=== PATIENT | female | born 1970 | race Caucasian/White ===

== ENCOUNTER 2021-01-10 13:02 | Inpatient (IN) | payer MEDICAID ==
[2021-01-10] VITALS (8 sets, daily range): BP systolic 95–122; BP diastolic 60–72
[~2021-01-10] VITALS: Ht 172.7 cm; Wt 62.0 kg
[2021-01-10] MEDS ORDERED: SODIUM CHLORIDE 0.9% 500 ML IV ONE (13:15)
[2021-01-10 13:36] LABS: Basophils # (auto) 0.1 10 ^3/uL (0-0.2); Eosinophils # (auto) 0.2 10 ^3/uL (0-0.8); Hematocrit 18.4 % (36.0-46.0)
[2021-01-10 13:37] LABS: Basophils % (auto) 1.5 % (0.0-2.0); Eosinophils % (auto) 2.2 % (0.0-7.0); Lymphocytes # (auto) 1.9 10 ^3/uL (0.4-5.4); Lymphocytes % (auto) 28.2 % (10.0-50.0); Mean Corpuscular Hemoglobin 17.6 pg (28.0-32.0); Mean Corpuscular Hgb Conc. 29.3 g/dL (32.0-36.0); Mean Corpuscular Volume 60.1 fL (80.0-100.0); Monocytes # (auto) 0.5 10 ^3/uL (0-1.3); Monocytes % (auto) 7.9 % (0.0-12.0); Neutrophils # (auto) 4.1 10 ^3/uL (1.6-8.6); Neutrophils % (auto) 60.2 % (37.0-80.0); Red Blood Cells 3.06 10^6/uL (4.0-5.20); White Blood Cell 6.8 10^3/uL (4.4-10.8)
[2021-01-10 13:39] LABS: Red Cell Distribution Width 20.2 % (11.8-14.3)
[2021-01-10 13:44] LABS: Hemoglobin 5.4 g/dL (12.2-16.2)
[2021-01-10 13:55] LABS: Albumin 3.1 g/dL (3.4-5.0); Anion Gap 7 (5-15); Blood Urea Nitrogen 10 mg/dL (7-18); Calcium 7.8 mg/dL (8.5-10.1); Carbon Dioxide 24 mmol/L (21-32); Chloride 112 mmol/L (98-107); Glucose 64 mg/dL (74-106); Magnesium 2.4 mg/dL (1.6-2.6); Sodium 143 mmol/L (136-145)
[2021-01-10 14:02] LABS: Alanine Aminotransferase 15 U/L (13-56); Alkaline Phosphatase 86 U/L (45-117); Aspartate Aminotransferase 11 U/L (15-37); Bilirubin, Total 0.2 mg/dL (0.2-1.0); GFR African American 71 mL/min; GFR Non-African American 59 mL/min; Potassium 2.7 mmol/L (3.5-5.1); Total Protein 7.2 g/dL (6.4-8.2)
[2021-01-10 14:03] LABS: BUN/Creatinine Ratio 9.4
[2021-01-10] MEDS ORDERED: POTASSIUM CHL 20MEQ/100ML 100 ML IV ONE (15:15)
[2021-01-10] MEDS ORDERED: MORPHINE SULF INJ 2 MG/ML SYRINGE 1ML IV ONE (15:15)
[2021-01-10] MEDS ORDERED: ONDANSETRON HCL 4 MG/2 ML VIAL IV ONE (15:15)
[2021-01-10] MEDS ORDERED: POTASSIUM CHL 20 Meq TABLET PO ONE (15:15)
[2021-01-10] MEDS ORDERED: LORATADINE 10 MG TAB PO ONE (17:00)
[2021-01-10] MEDS ORDERED: ACETAMINOPHEN 500 MG TAB PO ONE (17:00)
[2021-01-10] MEDS ORDERED: NITROGLYCERIN 0.4 MG SL TAB SL PRN (17:00)
[2021-01-10 19:21] LABS: Ferritin 2.2 ng/mL (10-322); Folate (Folic Acid) 7.71 ng/mL (5.38-24)
[2021-01-10] MEDS ORDERED: HYDR-4798 PO (19:28)
[2021-01-10] MEDS ORDERED: BACL10TA PO (19:28)
[2021-01-10 20:44] LABS: % Iron Saturation 7.1 % (15-50)
[2021-01-10] MEDS ORDERED: ACETAMINOPHEN 325 MG TAB PO PRN (20:45)
[2021-01-10] MEDS: MORPHINE SULF INJ 2 MG/ML SYRINGE 1ML IV PRN ×2 (20:46)
[2021-01-10] MEDS: PANTOPRAZOLE 40 MG TAB PO SCH (20:46)
[2021-01-11] VITALS (8 sets, daily range): BP systolic 99–121; BP diastolic 63–77
[2021-01-11 05:17] LABS: Eosinophils # (auto) 0.1 10 ^3/uL (0-0.8)
[2021-01-11 05:21] LABS: Basophils # (auto) 0.1 10 ^3/uL (0-0.2); Eosinophils % (auto) 1.6 % (0.0-7.0); Hematocrit 23.9 % (36.0-46.0); Hemoglobin 7.5 g/dL (12.2-16.2); Lymphocytes # (auto) 1.9 10 ^3/uL (0.4-5.4); Lymphocytes % (auto) 34.9 % (10.0-50.0); Mean Corpuscular Hgb Conc. 31.6 g/dL (32.0-36.0); Mean Corpuscular Volume 66.7 fL (80.0-100.0); Monocytes # (auto) 0.3 10 ^3/uL (0-1.3); Monocytes % (auto) 5.2 % (0.0-12.0); Neutrophils % (auto) 57.3 % (37.0-80.0); Red Blood Cells 3.58 10^6/uL (4.0-5.20); White Blood Cell 5.3 10^3/uL (4.4-10.8)
[2021-01-11 05:36] LABS: INR 1.1 (0.9-1.15); Partial Thromboplastin Time 25.2 sec (23.0-31.2)
[2021-01-11 05:44] LABS: Potassium 4.2 mmol/L (3.5-5.1)
[2021-01-11 05:50] LABS: Albumin 2.7 g/dL (3.4-5.0); BUN/Creatinine Ratio 14.1; Calcium 7.7 mg/dL (8.5-10.1); Total Protein 6.5 g/dL (6.4-8.2)
[2021-01-11 06:11] LABS: Red Cell Distribution Width 26.9 % (11.8-14.3)
[2021-01-11] MEDS: PANTOPRAZOLE 40 MG TAB PO SCH ×2 (10:24→22:01)
[2021-01-11] MEDS: MORPHINE SULF INJ 2 MG/ML SYRINGE 1ML IV PRN ×2 (10:32→20:20)
[2021-01-11] MEDS: SODIUM FERR GLUC 62.5MG/5ML 125 MG in SODIUM CHL 0.9% 100 ML IV SCH (12:41)
[2021-01-11 13:09] LABS: Urine Bacteria MOD /hpf (None Seen); Urine Blood Negative /uL (Negative); Urine Specific Gravity 1.005 (1.001-1.035); Urine WBC 68 /hpf (0 - 5)
[2021-01-11 13:21] LABS: Alcohol, Urine < 3.0 mg/dL (0-10); Amphetamine Screen, Urine POSITIVE (NEGATIVE); Barbiturate Scree,Urine NEGATIVE (NEGATIVE); Benzodiazephine Screen, Urine NEGATIVE (NEGATIVE); Cannabinoid Screen, Urine NEGATIVE (NEGATIVE); Cocaine Screen, Urine NEGATIVE (NEGATIVE); Phencyclidine Screen, Urine NEGATIVE (NEGATIVE)
[2021-01-11 13:29] LABS: Opiate Scree,Urine NEGATIVE (NEGATIVE)
[2021-01-11] MEDS ORDERED: cefTRIAXone 1GM/50ML D5W 50 ML IV ONE (14:15)
[2021-01-12 05:00] VITALS: BP 105/73
[2021-01-12 05:55] LABS: Hemoglobin 7.6 g/dL (12.2-16.2)
[2021-01-12 05:56] LABS: Hematocrit 24.7 % (36.0-46.0)
[2021-01-12 08:27] VITALS: BP 96/54
[2021-01-12] MEDS ORDERED: cefTRIAXone 1GM/50ML D5W 50 ML IV SCH (09:00)
[2021-01-12] MEDS: MORPHINE SULF INJ 2 MG/ML SYRINGE 1ML IV PRN (09:50)
[2021-01-12] MEDS: PANTOPRAZOLE 40 MG TAB PO SCH (09:50)
[2021-01-12] MEDS: SODIUM FERR GLUC 62.5MG/5ML 125 MG in SODIUM CHL 0.9% 100 ML IV SCH (11:55)
[2021-01-12 12:25] VITALS: BP 119/66
[2021-01-12] MEDS ORDERED: FERR-7 PO (13:34)
== END 2021-01-12 15:23 | disposition home or self-care (01) | DRG 663 ==
LOC: ER 13:02 → EDBD 13:02 → OVERFLOW 16:59 → WEST WING 18:42
PROVIDERS: ADMIT Hospitalist; ATTEND Hospitalist
PROC: 30233N1 Transfusion of Nonautologous Red Blood Cells into Peripheral Vein, Percutaneous Approach (ICD-10-PCS; principal; 2021-01-10)
DX: D50.9 Iron deficiency anemia, unspecified (principal); S09.90XA Unspecified injury of head, initial encounter; R55 Syncope and collapse; E87.6 Hypokalemia; F17.210 Nicotine dependence, cigarettes, uncomplicated; T14.8XXA Other injury of unspecified body region, initial encounter; W18.39XA Other fall on same level, initial encounter; Z20.822 Contact with and (suspected) exposure to COVID-19; Z90.49 Acquired absence of other specified parts of digestive tract; Z83.3 Family history of diabetes mellitus; Z98.51 Tubal ligation status; Y93.89 Activity, other specified; Y92.89 Other specified places as the place of occurrence of the external cause; Y99.8 Other external cause status; Z98.84 Bariatric surgery status
CPT/HCPCS: 36415; 36430; 70450; 70486; 72125; 76830; 76856; 80053; 80307; 81001; 81025; 82607; 82728; 82746; 83540; 83550; 83615; 83735; 84439; 84443; 84484; 85014; 85018; 85025; 85045; 85610; 85730; 86850; 86900; 86901; 86920; 87426; 93005; 96361; 96374; 96375; 99291; G0378; J0696; J2405; J3480

== ENCOUNTER 2023-02-15 23:21 | Emergency (ER) | payer MEDICAID ==
[~2023-02-15] VITALS: Ht 170.2 cm; Wt 67.5 kg
[~2023-02-15 23:21] MED LIST: BACL10TA PO; FERR-7 PO; HYDR-4798 PO; HYDR-4833 PO; PANT40T PO; SUCR1SUS26 PO
[2023-02-16 01:09] LABS: Basophils # (auto) 0.1 10 ^3/uL (0-0.2); Basophils % (auto) 0.8 % (0.0-2.0); Eosinophils # (auto) 0.2 10 ^3/uL (0-0.8); Eosinophils % (auto) 1.9 % (0.0-7.0); Hematocrit 26.5 % (36.0-46.0); Hemoglobin 8.8 g/dL (12.2-16.2); Lymphocytes # (auto) 3.5 10 ^3/uL (0.4-5.4); Lymphocytes % (auto) 39.6 % (10.0-50.0); Mean Corpuscular Hemoglobin 29.3 pg (28.0-32.0); Mean Corpuscular Hgb Conc. 33.3 g/dL (32.0-36.0); Mean Corpuscular Volume 88.1 fL (80.0-100.0); Monocytes # (auto) 0.6 10 ^3/uL (0-1.3); Monocytes % (auto) 6.9 % (0.0-12.0); Neutrophils # (auto) 4.5 10 ^3/uL (1.6-8.6); Neutrophils % (auto) 50.8 % (37.0-80.0); Red Blood Cells 3.01 10^6/uL (4.0-5.20); Red Cell Distribution Width 15.4 % (11.8-14.3); White Blood Cell 8.8 10^3/uL (4.4-10.8)
[2023-02-16 01:18] LABS: Albumin 3.9 g/dL (3.2-4.8); Alkaline Phosphatase 65 U/L (46-116); Anion Gap 3.9 (5-15); Aspartate Aminotransferase < 8 U/L (13-40); BUN/Creatinine Ratio 20.6 (10.0-20.0); Blood Urea Nitrogen 21 mg/dL (9-23); Calcium 8.8 mg/dL (8.7-10.4); Carbon Dioxide 24.1 mmol/L (20-30); Chloride 111 mmol/L (98-107); Glucose 100 mg/dL (74-106); Lipase 51 U/L (12-53); Potassium 3.6 mmol/L (3.5-5.1); Sodium 139 mmol/L (136-145)
[2023-02-16 01:19] LABS: Bilirubin, Total < 0.2 mg/dL (0.2-1.0); Total Protein 6.6 g/dL (5.7-8.2)
[2023-02-16 01:29] LABS: Alanine Aminotransferase < 9 U/L (7-40)
[2023-02-16] MEDS ORDERED: ONDANSETRON ODT 4 MG TAB PO ONE (05:00)
[2023-02-16] MEDS ORDERED: HYDROcodone-ACET 10/325MG TAB PO ONE (05:00)
[2023-02-16 05:40] VITALS: BP 102/68; PULSE 72; RESP 18; TEMP 98.3; O2SAT 98
== END 2023-02-16 06:40 | disposition home or self-care (01) ==
LOC: ER 23:21
DX: R42 Dizziness and giddiness (principal); E86.0 Dehydration; R79.89 Other specified abnormal findings of blood chemistry; R10.9 Unspecified abdominal pain; R11.2 Nausea with vomiting, unspecified; R07.89 Other chest pain; F17.210 Nicotine dependence, cigarettes, uncomplicated; Z90.49 Acquired absence of other specified parts of digestive tract; Z79.899 Other long term (current) drug therapy
CPT/HCPCS: 36415; 71045; 80053; 82962; 83690; 84484; 85025; 93005; 99285; Q0162

== ENCOUNTER 2023-10-13 19:48 | Emergency (ER) | payer MEDICAID ==
[~2023-10-13] VITALS: Ht 170.2 cm; Wt 68.2 kg
[2023-10-13] MEDS: MORPHINE SULFATE 4 MG/ML SYR/VIAL IM ONE (20:15)
[2023-10-13 20:50] LABS: Basophils # (auto) 0.1 10 ^3/uL (0-0.2); Eosinophils # (auto) 0.3 10 ^3/uL (0-0.8); Monocytes # (auto) 0.6 10 ^3/uL (0-1.3)
[2023-10-13 20:52] LABS: Basophils % (auto) 1.1 % (0.0-2.0); Eosinophils % (auto) 3.5 % (0.0-7.0); Hematocrit 33.2 % (36.0-46.0); Lymphocytes # (auto) 1.6 10 ^3/uL (0.4-5.4); Lymphocytes % (auto) 18.1 % (10.0-50.0); Mean Corpuscular Hemoglobin 20.5 pg (28.0-32.0); Mean Corpuscular Hgb Conc. 30.2 g/dL (32.0-36.0); Monocytes % (auto) 6.4 % (0.0-12.0); Neutrophils # (auto) 6.3 10 ^3/uL (1.6-8.6); Neutrophils % (auto) 70.9 % (37.0-80.0); Red Blood Cells 4.88 10^6/uL (4.0-5.20); Red Cell Distribution Width 19.7 % (11.8-14.3)
[2023-10-13 21:07] LABS: Alanine Aminotransferase 23 U/L (7-40); Albumin 3.7 g/dL (3.2-4.8); Alkaline Phosphatase 280 U/L (46-116); Anion Gap 6 (5-15); Aspartate Aminotransferase 27 U/L (13-40); BUN/Creatinine Ratio 9.2 (10.0-20.0); Blood Urea Nitrogen 9 mg/dL (9-23); Calcium 9.1 mg/dL (8.5-10.1); Carbon Dioxide 26 mmol/L (20-30); Chloride 105 mmol/L (98-107); Glucose 98 mg/dL (74-106); Potassium 3.5 mmol/L (3.5-5.1); Sodium 137 mmol/L (136-145)
[2023-10-13 21:08] LABS: Bilirubin, Total 0.3 mg/dL (0.2-1.0); Total Protein 9.3 g/dL (5.7-8.2)
[2023-10-13] MEDS ORDERED: DICY10CA PO (22:14)
[2023-10-13] MEDS ORDERED: ZOFR4T PO (22:14)
[2023-10-14 00:58] VITALS: BP 102/74; PULSE 106; RESP 18; TEMP 98.2; O2SAT 99
[2023-10-14] MEDS: ONDANSETRON ODT 4 MG TAB PO ONE (00:58)
== END 2023-10-14 01:02 | disposition home or self-care (01) ==
LOC: ER 19:48
DX: R10.13 Epigastric pain (principal); R10.2 Pelvic and perineal pain; F17.210 Nicotine dependence, cigarettes, uncomplicated; F15.10 Other stimulant abuse, uncomplicated; Z98.51 Tubal ligation status; Z90.49 Acquired absence of other specified parts of digestive tract
CPT/HCPCS: 36415; 74176; 80053; 84702; 85025; 93005; 99284; Q0162

== ENCOUNTER 2023-11-13 10:01 | Inpatient (IN) | payer MEDICAID ==
[2023-11-13] VITALS (14 sets, daily range): BP systolic 67–113; BP diastolic 30–71; PULSE 107–146; RESP 11–24; TEMP 96.1–98.8; O2SAT 92–100
[~2023-11-13] VITALS: Ht 162.6 cm; Wt 70.0 kg
[~2023-11-13 10:01] MED LIST changes: +DICY10CA PO; +ZOFR4T PO
[2023-11-13] MEDS: SODIUM CHLORIDE 0.9% 1,000 ML IV ONE ×2 (11:13→11:15)
[2023-11-13 11:43] LABS: Basophils # (auto) 0.1 10 ^3/uL (0-0.2); Lymphocytes # (auto) 1.3 10 ^3/uL (0.4-5.4)
[2023-11-13 11:46] LABS: Basophils % (auto) 0.4 % (0.0-2.0); Eosinophils # (auto) 0 10 ^3/uL (0-0.8); Eosinophils % (auto) 0.3 % (0.0-7.0); Hematocrit 16.5 % (36.0-46.0); Lymphocytes % (auto) 9.2 % (10.0-50.0); Mean Corpuscular Hemoglobin 21.4 pg (28.0-32.0); Mean Corpuscular Hgb Conc. 30.1 g/dL (32.0-36.0); Mean Corpuscular Volume 70.9 fL (80.0-100.0); Monocytes % (auto) 7.4 % (0.0-12.0); Neutrophils # (auto) 11.5 10 ^3/uL (1.6-8.6); Neutrophils % (auto) 82.7 % (37.0-80.0); Red Blood Cells 2.33 10^6/uL (4.0-5.20)
[2023-11-13 11:48] LABS: Red Cell Distribution Width 21.7 % (11.8-14.3)
[2023-11-13 11:54] LABS: Chloride 110 mmol/L (98-107); Potassium 3.5 mmol/L (3.5-5.1); Sodium 140 mmol/L (136-145)
[2023-11-13 11:55] LABS: Anion Gap 3 (5-15); Carbon Dioxide 27 mmol/L (20-30)
[2023-11-13 12:01] LABS: BUN/Creatinine Ratio 15.8 (10.0-20.0); Blood Urea Nitrogen 15 mg/dL (9-23); Glucose 116 mg/dL (74-106)
[2023-11-13 12:03] LABS: Platelet Estimate Adequate
[2023-11-13 12:04] LABS: Anisocytosis Slight; Hypochromia Moderate; Ovalocytes FEW
[2023-11-13 12:09] LABS: Urine Bacteria MOD /hpf (None Seen); Urine Blood Negative /uL (Negative); Urine Clarity Turbid (Clear); Urine Color Light-Yellow (Yellow); Urine Hyaline Cast FEW /lpf (0 - 2); Urine Mucus FEW (None Seen); Urine Protein, UAD TRACE (Negative); Urine Specific Gravity 1.013 (1.001-1.035); Urine Urobilinogen Normal (Negative); Urine WBC 12 /hpf (0 - 5)
[2023-11-13 12:18] LABS: Amphetamine Screen, Urine Pos (NEGATIVE); Barbiturate Scree,Urine Neg (NEGATIVE); Benzodiazephine Screen, Urine Neg (NEGATIVE)
[2023-11-13 12:19] LABS: Cannabinoid Screen, Urine Neg (NEGATIVE); Cocaine Screen, Urine Neg (NEGATIVE); Opiate Scree,Urine Neg (NEGATIVE); Phencyclidine Screen, Urine Neg (NEGATIVE)
[2023-11-13] MEDS: cefTRIAXone 1GM/50ML D5W 50 ML IV ONE (12:35)
[2023-11-13] MEDS: ETOMIDATE (2MG/ML) 20ML VIAL IV ONE ×2 (14:37→14:47)
[2023-11-13] MEDS: MIDAZOLAM DRIP 50 mg/50mL 50 ML IV ONE (14:38)
[2023-11-13] MEDS: ROCURONIUM 10MG/ML 10ML VIAL IV ONE ×2 (14:39→14:48)
[2023-11-13] MEDS: MIDAZOLAM DRIP 50 mg/50mL 50 ML IV SCH ×2 (14:54→21:30)
[2023-11-13] MEDS: NOREPINEPHRINE 8 MG/250ML KIT 250 ML IV SCH (15:33)
[2023-11-13] MEDS ORDERED: NITROGLYCERIN 0.4 MG SL TAB SL PRN ×2 (15:45→16:00)
[2023-11-13] MEDS ORDERED: ONDANSETRON HCL 4 MG/2 ML VIAL IV PRN ×2 (15:45→16:00)
[2023-11-13] MEDS ORDERED: MORPHINE SULFATE INJ 2 MG/ml SYRG IV PRN ×4 (15:45→16:00)
[2023-11-13] MEDS ORDERED: ACETAMINOPHEN 325 MG TAB PO PRN (15:45)
[2023-11-13] MEDS: PANTOPRAZOLE 80 MG in SODIUM CHL 0.9% 100 ML IV ONE (15:45)
[2023-11-13] MEDS ORDERED: VANCOMYCIN PER PHARMACY 0 MG IV SCH ×2 (15:45→16:00)
[2023-11-13] MEDS ORDERED: SODIUM CHLORIDE 0.9% 1,000 ML IV SCH (15:45)
[2023-11-13] MEDS ORDERED: HYDROcodone-ACET 5/325MG TAB PO PRN ×2 (15:45→16:00)
[2023-11-13] MEDS ORDERED: DOCUSATE SOD 100 MG CAP PO PRN ×2 (15:45→16:00)
[2023-11-13 16:16] LABS: INR 1.21 (0.9-1.15); Prothrombin Time 12.6 sec (9.3-11.8)
[2023-11-13 16:51] LABS: Base Excess -4.7 mmol/L (-2.0-2.0)
[2023-11-13 16:51] LABS: Alkaline Phosphatase 101 U/L (46-116); Aspartate Aminotransferase 9 U/L (13-40); Bilirubin, Total < 0.2 mg/dL (0.2-1.0)
[2023-11-13 16:52] LABS: Alanine Aminotransferase < 9 U/L (7-40)
[2023-11-13] MEDS: OCTREOTIDE ACETATE 500 MCG in SODIUM CHL 0.9% 99 ML IV SCH (16:53)
[2023-11-13] MEDS: SODIUM CHLORIDE 0.9% 1,000 ML IV SCH (18:38)
[2023-11-13] MEDS: VANCOMYCIN 1GM/200ML 200 ML IV ONE (18:38)
[2023-11-13] MEDS ORDERED: CEFEPIME 1GM/ 50ML 50 ML IV SCH (22:00)
[2023-11-13] MEDS: PANTOPRAZOLE 40mg/50ML NS AE 50 ML IV SCH (22:20)
[2023-11-13] MEDS: CEFEPIME 1GM/ 50ML 50 ML IV SCH (22:20)
[2023-11-13] MEDS ORDERED: DEXTROSE (50%) 50ML SYRG IV PRN (23:45)
[2023-11-14] VITALS (25 sets, daily range): BP systolic 84–112; BP diastolic 41–70; PULSE 116–136; RESP 15–23; TEMP 98.3–100.6; O2SAT 91–100
[2023-11-14] MEDS: NOREPINEPHRINE 8 MG/250ML KIT 250 ML IV ONE ×2 (00:36→08:19)
[2023-11-14] MEDS: fentaNYL Drip 2500mCg/250mlNS 250 ML IV SCH (00:47)
[2023-11-14] MEDS: ACCU-CHEK COMFORT CURVE STRIP VI SCH (01:00)
[2023-11-14] MEDS: ACETAMINOPHEN 325 MG TAB PO PRN (03:38)
[2023-11-14 04:05] LABS: Hematocrit 26.8 % (36.0-46.0); Hemoglobin 8.3 g/dL (12.2-16.2); Mean Corpuscular Hemoglobin 25.2 pg (28.0-32.0); Mean Corpuscular Hgb Conc. 31.1 g/dL (32.0-36.0); Mean Corpuscular Volume 81.1 fL (80.0-100.0); Red Blood Cells 3.31 10^6/uL (4.0-5.20)
[2023-11-14 04:08] LABS: Red Cell Distribution Width 21.6 % (11.8-14.3)
[2023-11-14 04:09] LABS: Basophils % (manual) 0 (0.0-2.0); Blast Cells 0; Eosinophils % (manual) 0 (0-7); Metamyelocytes % 0; Myelocytes % 0; Promyelocytes % 0; Reactive Lymphocytes 0
[2023-11-14 04:41] LABS: Alkaline Phosphatase 109 U/L (46-116); Anion Gap 6 (5-15); BUN/Creatinine Ratio 23.5 (10.0-20.0); Calcium 7.2 mg/dL (8.7-10.4); Carbon Dioxide 20 mmol/L (20-30); Glucose 121 mg/dL (74-106)
[2023-11-14 04:42] LABS: Albumin 1.9 g/dL (3.2-4.8); Aspartate Aminotransferase 17 U/L (13-40); Bilirubin, Total 0.2 mg/dL (0.2-1.0); Total Protein 5.6 g/dL (5.7-8.2)
[2023-11-14 04:43] LABS: Alanine Aminotransferase < 9 U/L (7-40); Blood Urea Nitrogen 35 mg/dL (9-23); Chloride 120 mmol/L (98-107); Sodium 146 mmol/L (136-145)
[2023-11-14 05:03] LABS: Triglycerides 87 mg/dL (< 150)
[2023-11-14 05:04] LABS: LDL Cholesterol 26 mg/dL (< 100)
[2023-11-14 05:05] LABS: Cholesterol 61 mg/dL (< 200); HDL Cholesterol 16 mg/dL (40-59)
[2023-11-14 06:29] LABS: Band Neutrophils % (manual) 4; Lymphocytes % (manual) 11 (10.0-50.0); Monocytes % (manual) 4 (0-12); Platelet Estimate Adequate
[2023-11-14 06:30] LABS: Anisocytosis Slight; Large Platelets FEW; Ovalocytes FEW
[2023-11-14 06:46] LABS: Base Excess -6.8 mmol/L (-2.0-2.0)
[2023-11-14] MEDS ORDERED: LACTATED RINGER'S 1,000 ML IV SCH (08:15)
[2023-11-14 08:47] LABS: Hematocrit 29.5 % (36.0-46.0); Hemoglobin 9.3 g/dL (12.2-16.2)
[2023-11-14] MEDS: VANCOMYCIN 750mg/150ml 150 ML IV SCH (08:48)
[2023-11-14 08:55] LABS: Magnesium 1.8 mg/dL (1.6-2.6)
[2023-11-14 08:56] LABS: Phosphorus 5.6 mg/dL (2.4-5.1)
[2023-11-14] MEDS: ALBUMIN 25% 50 ML IV ONE (09:20)
[2023-11-14] MEDS ORDERED: ENOXAPARIN SOD 40 MG/0.4 ML SYRINGE SC SCH ×2 (10:00)
[2023-11-14] MEDS: MEROPENEM 1GM IVPB 50 ML IV SCH (10:47)
[2023-11-14 13:20] LABS: COVID19 ANTIGEN SOFIA FIA NEGATIVE (NEGATIVE); Rapid Influenza A Negative (Negative); Rapid Influenza B Negative (Negative)
[2023-11-14] MEDS ORDERED: DEXTROSE (50%) 50ML SYRG IV PRN (17:30)
[2023-11-14] MEDS: InsuLIN REG 1unit/0.01ml Soln (100units/ml) SC SCH (18:00)
[2023-11-15] VITALS (92 sets, daily range): BP systolic 79–115; BP diastolic 51–79; PULSE 66–120; RESP 13–25; TEMP 96–99.1; O2SAT 94–100
[2023-11-15 07:13] LABS: Basophils # (auto) 0 10 ^3/uL (0-0.2); Basophils % (auto) 0.1 % (0.0-2.0); Eosinophils # (auto) 0 10 ^3/uL (0-0.8); Hematocrit 25.4 % (36.0-46.0); Hemoglobin 8.1 g/dL (12.2-16.2); Lymphocytes # (auto) 2.2 10 ^3/uL (0.4-5.4); Lymphocytes % (auto) 8.9 % (10.0-50.0); Mean Corpuscular Hemoglobin 25.7 pg (28.0-32.0); Mean Corpuscular Volume 80.2 fL (80.0-100.0); Monocytes # (auto) 2.1 10 ^3/uL (0-1.3); Monocytes % (auto) 8.7 % (0.0-12.0); Neutrophils # (auto) 20.1 10 ^3/uL (1.6-8.6); Neutrophils % (auto) 82.3 % (37.0-80.0); Red Blood Cells 3.17 10^6/uL (4.0-5.20); White Blood Cell 24.5 10^3/uL (4.4-10.8)
[2023-11-15 07:15] LABS: Red Cell Distribution Width 22.2 % (11.8-14.3)
[2023-11-15 07:31] LABS: % Iron Saturation 8.3 % (15-50)
[2023-11-15 09:56] LABS: Creatinine, Urine 32.47 mg/dL (30.0-125.0)
[2023-11-15] MEDS ORDERED: SODIUM CHLORIDE 0.9% 1,000 ML IV SCH (10:15)
[2023-11-15 10:17] LABS: Albumin 2.2 g/dL (3.2-4.8); Alkaline Phosphatase 171 U/L (46-116); Anion Gap 11 (5-15); Aspartate Aminotransferase 18 U/L (13-40); BUN/Creatinine Ratio 29.7 (10.0-20.0); Blood Urea Nitrogen 43 mg/dL (9-23); Calcium 7.8 mg/dL (8.7-10.4); Carbon Dioxide 21 mmol/L (20-30); Glucose 103 mg/dL (74-106); Lipase 45 U/L (12-53); Magnesium 2.3 mg/dL (1.6-2.6); Potassium 4.1 mmol/L (3.5-5.1)
[2023-11-15 10:18] LABS: Bilirubin, Total 0.2 mg/dL (0.2-1.0); Phosphorus 4.3 mg/dL (2.4-5.1); Total Protein 5.8 g/dL (5.7-8.2)
[2023-11-15 10:22] LABS: Alanine Aminotransferase < 9 U/L (7-40); Chloride 136 mmol/L (98-107)
[2023-11-15 10:24] LABS: Sodium 168 mmol/L (136-145)
[2023-11-15] MEDS: D5W 5% 1,000 ML IV SCH ×2 (11:13→12:30)
[2023-11-15] MEDS: CLINDAMYCIN 900MG IV 50 ML IV ONE (11:16)
[2023-11-15 11:24] LABS: INR 1.21 (0.9-1.15); Partial Thromboplastin Time 28.2 SEC (24.5-34.5); Prothrombin Time 12.6 sec (9.3-11.8)
[2023-11-15 14:40] LABS: Base Excess -4.7 mmol/L (-2.0-2.0)
[2023-11-15] MEDS ORDERED: EPINEPHrine HCL 1 MG/10 ML SYRG ONE (14:56)
[2023-11-15] MEDS ORDERED: AMPICILLIN & SULBACTAM SODIUM 3 GM in SODIUM CHL 0.9% 100 ML IV SCH (16:15)
[2023-11-15] MEDS ORDERED: DEXTROSE (50%) 50ML SYRG IV PRN (16:30)
[2023-11-15] MEDS: ACCU-CHEK COMFORT CURVE STRIP VI SCH (16:53)
[2023-11-15] MEDS: SUCRALFATE 1 GM/10 ML ORAL SUSP GT SCH (16:53)
[2023-11-15] MEDS: InsuLIN REG 1unit/0.01ml Soln (100units/ml) SC SCH (16:54)
[2023-11-15] MEDS ORDERED: levoFLOXacin 500MG 100 ML IV SCH (17:00)
[2023-11-15] MEDS: cefTRIAXone 2GM/50ML D5W 50 ML IV ONE (18:19)
[2023-11-15] MEDS: CLINDAMYCIN 900MG IV 50 ML IV SCH (18:20)
[2023-11-15 18:24] LABS: Chloride 135 mmol/L (98-107); Potassium 3.5 mmol/L (3.5-5.1)
[2023-11-15 18:25] LABS: Anion Gap 4 (5-15); Carbon Dioxide 25 mmol/L (20-30)
[2023-11-15 18:26] LABS: Calcium 7.5 mg/dL (8.5-10.1)
[2023-11-15 18:31] LABS: Blood Urea Nitrogen 36 mg/dL (9-23); Glucose 136 mg/dL (74-106)
[2023-11-15 18:35] LABS: Sodium 164 mmol/L (136-145)
[2023-11-15] MEDS: PANTOPRAZOLE 40 MG/10 ML VIAL INJ IV SCH (22:00)
[2023-11-16] VITALS (113 sets, daily range): BP systolic 81–113; BP diastolic 49–74; PULSE 67–96; RESP 20; TEMP 97.2–100.1; O2SAT 92–100
[2023-11-16 04:43] LABS: Alkaline Phosphatase 136 U/L (46-116); Anion Gap 9 (5-15); Aspartate Aminotransferase 19 U/L (13-40); BUN/Creatinine Ratio 27.1 (10.0-20.0); Blood Urea Nitrogen 35 mg/dL (9-23); Calcium 7.7 mg/dL (8.7-10.4); Carbon Dioxide 22 mmol/L (20-30); Chloride 130 mmol/L (98-107); Glucose 107 mg/dL (74-106); Magnesium 2.2 mg/dL (1.6-2.6); Potassium 3.6 mmol/L (3.5-5.1)
[2023-11-16 04:44] LABS: Bilirubin, Total < 0.2 mg/dL (0.2-1.0); Phosphorus 3.2 mg/dL (2.4-5.1); Total Protein 5.4 g/dL (5.7-8.2)
[2023-11-16 04:46] LABS: Basophils # (auto) 0 10 ^3/uL (0-0.2); Eosinophils # (auto) 0.1 10 ^3/uL (0-0.8); Hemoglobin 7.1 g/dL (12.2-16.2); Monocytes # (auto) 1.3 10 ^3/uL (0-1.3)
[2023-11-16 04:48] LABS: Basophils % (auto) 0.2 % (0.0-2.0); Eosinophils % (auto) 0.3 % (0.0-7.0); Hematocrit 22.4 % (36.0-46.0); Lymphocytes # (auto) 1.6 10 ^3/uL (0.4-5.4); Lymphocytes % (auto) 8.3 % (10.0-50.0); Mean Corpuscular Hemoglobin 25.5 pg (28.0-32.0); Mean Corpuscular Hgb Conc. 31.7 g/dL (32.0-36.0); Mean Corpuscular Volume 80.6 fL (80.0-100.0); Monocytes % (auto) 6.6 % (0.0-12.0); Neutrophils # (auto) 16.2 10 ^3/uL (1.6-8.6); Neutrophils % (auto) 84.6 % (37.0-80.0); Nucleated Red Blood Cells % 0.1 %; Red Blood Cells 2.78 10^6/uL (4.0-5.20); White Blood Cell 19.1 10^3/uL (4.4-10.8)
[2023-11-16 05:31] LABS: Red Cell Distribution Width 22.4 % (11.8-14.3)
[2023-11-16 05:55] LABS: Alanine Aminotransferase < 9 U/L (7-40)
[2023-11-16 05:56] LABS: Sodium 161 mmol/L (136-145)
[2023-11-16 06:07] LABS: Varicella Zoster IgG Antibody 1184 index (Immune >165)
[2023-11-16] MEDS: cefTRIAXone 2GM/50ML D5W 50 ML IV SCH (07:58)
[2023-11-16] MEDS: D5W 5% 1,000 ML IV SCH ×2 (08:00→14:00)
[2023-11-16] MEDS ORDERED: ACYCLOVIR 10MG/KG Q8HR PER RX 0 ML IV SCH (09:30)
[2023-11-16 09:51] LABS: Base Excess -5.3 mmol/L (-2.0-2.0)
[2023-11-16] MEDS: CHOLECALCIFEROL (VITD3) 1,000UNIT=25mCg TAB PO SCH (10:07)
[2023-11-16] MEDS: ACYCLOVIR SOD 50MG/ML 500 MG in D5W 5% 100 ML IV SCH (13:00)
[2023-11-16] MEDS: SODIUM FERR GLUC 62.5MG/5ML 110 ML IV SCH (13:01)
[2023-11-16 13:38] LABS: Chloride 125 mmol/L (98-107); Potassium 3.6 mmol/L (3.5-5.1)
[2023-11-16 13:39] LABS: Anion Gap 3 (5-15); Calcium 7.4 mg/dL (8.5-10.1); Carbon Dioxide 25 mmol/L (20-30)
[2023-11-16 13:44] LABS: BUN/Creatinine Ratio 22.9 (10.0-20.0); Blood Urea Nitrogen 33 mg/dL (9-23); Glucose 122 mg/dL (74-106)
[2023-11-16 13:53] LABS: Sodium 153 mmol/L (136-145)
[2023-11-16 21:36] LABS: Chloride 121 mmol/L (98-107); Potassium 3.5 mmol/L (3.5-5.1); Sodium 150 mmol/L (136-145)
[2023-11-16 21:37] LABS: Anion Gap 8 (5-15); Carbon Dioxide 21 mmol/L (20-30)
[2023-11-16 21:38] LABS: Calcium 7.4 mg/dL (8.7-10.4)
[2023-11-16 21:42] LABS: BUN/Creatinine Ratio 22.1 (10.0-20.0); Blood Urea Nitrogen 31 mg/dL (9-23); Glucose 101 mg/dL (74-106)
[2023-11-17] VITALS (114 sets, daily range): BP systolic 84–114; BP diastolic 50–74; PULSE 61–82; RESP 15–20; TEMP 97.4–98.3; O2SAT 86–100
[2023-11-17 03:47] LABS: Hematocrit 21.3 % (36.0-46.0); Mean Corpuscular Hemoglobin 25.8 pg (28.0-32.0); Mean Corpuscular Hgb Conc. 32.2 g/dL (32.0-36.0); Mean Corpuscular Volume 80.1 fL (80.0-100.0); Red Blood Cells 2.65 10^6/uL (4.0-5.20); White Blood Cell 18.5 10^3/uL (4.4-10.8)
[2023-11-17 03:58] LABS: Alkaline Phosphatase 144 U/L (46-116); Anion Gap 7 (5-15); BUN/Creatinine Ratio 24.6 (10.0-20.0); Blood Urea Nitrogen 32 mg/dL (9-23); Calcium 7.4 mg/dL (8.7-10.4); Carbon Dioxide 23 mmol/L (20-30); Chloride 118 mmol/L (98-107); Glucose 88 mg/dL (74-106); Magnesium 1.9 mg/dL (1.6-2.6); Potassium 3.5 mmol/L (3.5-5.1); Sodium 148 mmol/L (136-145)
[2023-11-17 03:59] LABS: Aspartate Aminotransferase 16 U/L (13-40)
[2023-11-17 04:00] LABS: Bilirubin, Total < 0.2 mg/dL (0.2-1.0); Phosphorus 2.9 mg/dL (2.4-5.1); Total Protein 5.3 g/dL (5.7-8.2)
[2023-11-17 04:21] LABS: Alanine Aminotransferase < 9 U/L (7-40)
[2023-11-17 04:31] LABS: Hemoglobin 6.8 g/dL (12.2-16.2)
[2023-11-17 04:32] LABS: Red Cell Distribution Width 22.8 % (11.8-14.3)
[2023-11-17 04:33] LABS: Basophils % (manual) 0 (0.0-2.0); Blast Cells 0; Metamyelocytes % 0; Myelocytes % 0; Promyelocytes % 0; Reactive Lymphocytes 0
[2023-11-17] MEDS: FLUCONAZOLE 200MG/100ML 100 ML IV SCH (07:24)
[2023-11-17 08:09] LABS: Band Neutrophils % (manual) 14; Eosinophils % (manual) 1 (0-7); Lymphocytes % (manual) 19 (10.0-50.0); Monocytes % (manual) 1 (0-12)
[2023-11-17 08:10] LABS: Platelet Estimate Decreased
[2023-11-17 08:12] LABS: Anisocytosis Slight
[2023-11-17 08:29] LABS: Base Excess -3.3 mmol/L (-2.0-2.0)
[2023-11-17 09:33] LABS: Anion Gap 3 (5-15); Carbon Dioxide 24 mmol/L (20-30); Chloride 118 mmol/L (98-107); Potassium 3.4 mmol/L (3.5-5.1); Sodium 145 mmol/L (136-145)
[2023-11-17 09:34] LABS: Calcium 7.3 mg/dL (8.5-10.1)
[2023-11-17 09:39] LABS: Blood Urea Nitrogen 28 mg/dL (9-23); Glucose 92 mg/dL (74-106)
[2023-11-17] MEDS ORDERED: CLINIMIX PER PHARMACY 0 ML IV SCH (14:15)
[2023-11-17] MEDS: ACCU-CHEK COMFORT CURVE STRIP VI SCH (17:04)
[2023-11-17] MEDS: InsuLIN REG 1unit/0.01ml Soln (100units/ml) SC SCH (17:37)
[2023-11-17] MEDS: AMINO ACID INFUSION IN D5W 2,000 ML IV NR (21:33)
[2023-11-18] VITALS (107 sets, daily range): BP systolic 10–147; BP diastolic 53–87; PULSE 62–107; RESP 19–25; TEMP 97.5–99; O2SAT 92–100
[2023-11-18 05:19] LABS: Basophils # (auto) 0 10 ^3/uL (0-0.2); Basophils % (auto) 0.2 % (0.0-2.0); Eosinophils # (auto) 0.4 10 ^3/uL (0-0.8); Eosinophils % (auto) 2.1 % (0.0-7.0); Hematocrit 27.8 % (36.0-46.0); Hemoglobin 8.9 g/dL (12.2-16.2); Lymphocytes # (auto) 1.8 10 ^3/uL (0.4-5.4); Mean Corpuscular Hemoglobin 25.9 pg (28.0-32.0); Mean Corpuscular Hgb Conc. 32.2 g/dL (32.0-36.0); Mean Corpuscular Volume 80.6 fL (80.0-100.0); Monocytes # (auto) 1.1 10 ^3/uL (0-1.3); Monocytes % (auto) 6.2 % (0.0-12.0); Neutrophils # (auto) 14.4 10 ^3/uL (1.6-8.6); Neutrophils % (auto) 81.5 % (37.0-80.0); Nucleated Red Blood Cells % 0.3 %; Red Blood Cells 3.45 10^6/uL (4.0-5.20); White Blood Cell 17.7 10^3/uL (4.4-10.8)
[2023-11-18 05:21] LABS: Red Cell Distribution Width 22.8 % (11.8-14.3)
[2023-11-18 05:36] LABS: Alanine Aminotransferase 10 U/L (7-40); Albumin 2.1 g/dL (3.2-4.8); Alkaline Phosphatase 142 U/L (46-116); Anion Gap 5 (5-15); Aspartate Aminotransferase 14 U/L (13-40); BUN/Creatinine Ratio 24.4 (10.0-20.0); Bilirubin, Total 0.2 mg/dL (0.2-1.0); Blood Urea Nitrogen 20 mg/dL (9-23); Calcium 7.4 mg/dL (8.5-10.1); Carbon Dioxide 24 mmol/L (20-30); Chloride 119 mmol/L (98-107); Glucose 93 mg/dL (74-106); Magnesium 1.8 mg/dL (1.6-2.6); Potassium 3.1 mmol/L (3.5-5.1); Sodium 148 mmol/L (136-145); Total Protein 5.4 g/dL (5.7-8.2)
[2023-11-18 05:50] LABS: Anisocytosis Slight; Ovalocytes FEW; Platelet Estimate Decreased; Stomatocytes Few
[2023-11-18] MEDS: FUROSEMIDE 40 MG/4 ML VIAL IV SCH (10:12)
[2023-11-18] MEDS: POTASSIUM CHL 20MEQ/100ML 100 ML IV SCH (10:13)
[2023-11-18] MEDS: ACYCLOVIR SOD 50MG/ML 500 MG in D5W 5% 100 ML IV SCH (20:00)
[2023-11-18] MEDS: AMINO ACID INFUSION IN D5W 2,000 ML IV NR (20:06)
[2023-11-19] VITALS (111 sets, daily range): BP systolic 77–144; BP diastolic 49–90; PULSE 88–124; RESP 17–24; TEMP 97.3–98.5; O2SAT 90–100
[2023-11-19] MEDS: DEXTROSE (50%) 50ML SYRG IV SCH (00:01)
[2023-11-19 04:29] LABS: Basophils # (auto) 0 10 ^3/uL (0-0.2); Basophils % (auto) 0.2 % (0.0-2.0); Eosinophils # (auto) 0.3 10 ^3/uL (0-0.8); Eosinophils % (auto) 1.7 % (0.0-7.0); Hematocrit 27.5 % (36.0-46.0); Hemoglobin 8.9 g/dL (12.2-16.2); Lymphocytes # (auto) 1.4 10 ^3/uL (0.4-5.4); Lymphocytes % (auto) 7.9 % (10.0-50.0); Mean Corpuscular Hemoglobin 26.4 pg (28.0-32.0); Mean Corpuscular Hgb Conc. 32.5 g/dL (32.0-36.0); Mean Corpuscular Volume 81.2 fL (80.0-100.0); Monocytes % (auto) 5.5 % (0.0-12.0); Neutrophils # (auto) 15.1 10 ^3/uL (1.6-8.6); Neutrophils % (auto) 84.7 % (37.0-80.0); Nucleated Red Blood Cells % 0.3 %; Red Blood Cells 3.38 10^6/uL (4.0-5.20); White Blood Cell 17.9 10^3/uL (4.4-10.8)
[2023-11-19 04:30] LABS: Red Cell Distribution Width 23.2 % (11.8-14.3)
[2023-11-19 04:42] LABS: Albumin 2.1 g/dL (3.2-4.8); Alkaline Phosphatase 129 U/L (46-116); Aspartate Aminotransferase 16 U/L (13-40); BUN/Creatinine Ratio 22.2 (10.0-20.0); Bilirubin, Total 0.2 mg/dL (0.2-1.0); Blood Urea Nitrogen 14 mg/dL (9-23); Calcium 7.9 mg/dL (8.7-10.4); Chloride 118 mmol/L (98-107); Glucose 102 mg/dL (74-106); Magnesium 1.7 mg/dL (1.6-2.6); Phosphorus 2.3 mg/dL (2.4-5.1); Potassium 3.4 mmol/L (3.5-5.1); Sodium 152 mmol/L (136-145); Total Protein 5.7 g/dL (5.7-8.2)
[2023-11-19 04:50] LABS: Alanine Aminotransferase < 9 U/L (7-40)
[2023-11-19 04:55] LABS: Anion Gap 8 (5-15); Carbon Dioxide 26 mmol/L (20-30)
[2023-11-19 05:07] LABS: Treponema Pallidum Ab LC Reactive (Non Reactive)
[2023-11-19] MEDS: POTASSIUM CHL 20MEQ/100ML 100 ML IV ONE (06:51)
[2023-11-19] MEDS: MAGNESIUM SULFATE 1GM/100ML 100 ML IV ONE (09:46)
[2023-11-19 10:06] LABS: Anti-Centromere B Antibody <0.2 AI (0.0-0.9); Anti-Jo-1 Antibody <0.2 AI (0.0-0.9); Anti-Nuclear Antibody Direct Negative (Negative); Anti-dsDNA Antibody 2 IU/mL (0-9); Antichromatin Antibody <0.2 AI (0.0-0.9); Antiscleroderma-70 Antibody <0.2 AI (0.0-0.9); RNP Antibody 0.3 AI (0.0-0.9); Sjogren's Anti-SS-A Antibody <0.2 AI (0.0-0.9); Sjogren's Anti-SS-B Antibody <0.2 AI (0.0-0.9); Smith Antibody <0.2 AI (0.0-0.9)
[2023-11-19] MEDS: POTASSIUM PHOSPHATE 22 MEQ in SODIUM CHL 0.9% 100 ML IV ONE (11:07)
[2023-11-19 13:07] LABS: Varicella Zoster IgM Antibody <0.91 index (0.00-0.90)
[2023-11-19 14:45] LABS: Chloride 118 mmol/L (98-107); Potassium 3.5 mmol/L (3.5-5.1); Sodium 148 mmol/L (136-145)
[2023-11-19 14:46] LABS: Anion Gap 2 (5-15); Calcium 7.8 mg/dL (8.5-10.1); Carbon Dioxide 28 mmol/L (20-30)
[2023-11-19 14:51] LABS: BUN/Creatinine Ratio 19.6 (10.0-20.0); Blood Urea Nitrogen 10 mg/dL (9-23); Glucose 102 mg/dL (74-106)
[2023-11-19] MEDS: IRON SUCROSE COMPLEX 110 ML IV SCH (15:05)
[2023-11-19] MEDS: D5W 5% 1,000 ML IV SCH (15:13)
[2023-11-19 16:07] LABS: Chlamydia Trachomatis, NAA Negative (Negative); Neisseria gonorrhoeae, NAA Negative (Negative)
[2023-11-19] MEDS: Jevity 1.2 Cal/Fiber 1 Liter GT SCH (19:00)
[2023-11-19 19:06] LABS: Treponema pallidum Ab (FTA-Ab) Reactive (Non Reactive)
[2023-11-19 23:06] LABS: Chloride 115 mmol/L (98-107); Potassium 3.2 mmol/L (3.5-5.1); Sodium 148 mmol/L (136-145)
[2023-11-19 23:07] LABS: Anion Gap 6 (5-15); Carbon Dioxide 27 mmol/L (20-30)
[2023-11-19 23:08] LABS: Calcium 7.7 mg/dL (8.7-10.4)
[2023-11-19 23:12] LABS: Glucose 98 mg/dL (74-106)
[2023-11-19 23:24] LABS: BUN/Creatinine Ratio 19.2 (10.0-20.0); Blood Urea Nitrogen 10 mg/dL (9-23)
[2023-11-20] VITALS (105 sets, daily range): BP systolic 101–153; BP diastolic 65–103; PULSE 100–123; RESP 12–26; TEMP 97–98.6; O2SAT 95–100
[2023-11-20] MEDS: POTASSIUM CHL 20MEQ/100ML 100 ML IV ONE ×2 (01:18→10:10)
[2023-11-20 06:28] LABS: Basophils # (auto) 0 10 ^3/uL (0-0.2); Basophils % (auto) 0.3 % (0.0-2.0); Eosinophils # (auto) 0.3 10 ^3/uL (0-0.8); Eosinophils % (auto) 1.8 % (0.0-7.0); Hematocrit 24.1 % (36.0-46.0); Hemoglobin 7.8 g/dL (12.2-16.2); Lymphocytes # (auto) 1.2 10 ^3/uL (0.4-5.4); Lymphocytes % (auto) 8.3 % (10.0-50.0); Mean Corpuscular Hemoglobin 26.3 pg (28.0-32.0); Mean Corpuscular Hgb Conc. 32.3 g/dL (32.0-36.0); Mean Corpuscular Volume 81.4 fL (80.0-100.0); Monocytes # (auto) 0.9 10 ^3/uL (0-1.3); Monocytes % (auto) 6.3 % (0.0-12.0); Neutrophils # (auto) 12.1 10 ^3/uL (1.6-8.6); Neutrophils % (auto) 83.3 % (37.0-80.0); Red Blood Cells 2.96 10^6/uL (4.0-5.20); Red Cell Distribution Width 23.2 % (11.8-14.3); White Blood Cell 14.6 10^3/uL (4.4-10.8)
[2023-11-20 06:46] LABS: Alkaline Phosphatase 122 U/L (46-116); Anion Gap 2 (5-15); Aspartate Aminotransferase 19 U/L (13-40); BUN/Creatinine Ratio 19.1 (10.0-20.0); Bilirubin, Total 0.2 mg/dL (0.2-1.0); Blood Urea Nitrogen 9 mg/dL (9-23); Calcium 7.8 mg/dL (8.5-10.1); Carbon Dioxide 29 mmol/L (20-30); Chloride 114 mmol/L (98-107); Glucose 85 mg/dL (74-106); Magnesium 1.8 mg/dL (1.6-2.6); Phosphorus 2.2 mg/dL (2.4-5.1); Potassium 3.3 mmol/L (3.5-5.1); Sodium 145 mmol/L (136-145); Total Protein 5.4 g/dL (5.7-8.2)
[2023-11-20 06:49] LABS: Alanine Aminotransferase 9 U/L (7-40)
[2023-11-20 08:14] LABS: Chloride 114 mmol/L (98-107); Potassium 3.4 mmol/L (3.5-5.1); Sodium 146 mmol/L (136-145)
[2023-11-20 08:15] LABS: Anion Gap 1 (5-15); Calcium 7.6 mg/dL (8.5-10.1); Carbon Dioxide 31 mmol/L (20-30)
[2023-11-20 08:20] LABS: BUN/Creatinine Ratio 19.6 (10.0-20.0); Blood Urea Nitrogen 9 mg/dL (9-23); Glucose 84 mg/dL (74-106)
[2023-11-20 08:32] LABS: Base Excess 2.1 mmol/L (-2.0-2.0)
[2023-11-20] MEDS: FUROSEMIDE 40 MG/4 ML VIAL IV SCH (09:21)
[2023-11-20] MEDS: D5W 5% 1,000 ML IV SCH (09:46)
[2023-11-20] MEDS: MAGNESIUM SULFATE 1GM/100ML 100 ML IV ONE (09:53)
[2023-11-20] MEDS: POTASSIUM PHOSPHATE 26.4 MEQ in SODIUM CHL 0.9% 100 ML IV ONE (11:05)
[2023-11-20 14:32] LABS: Base Excess 2.8 mmol/L (-2.0-2.0)
[2023-11-20 16:06] LABS: Antimyeloperoxidase (MPO) Ab <0.2 units (0.0-0.9); Antiproteinase 3 (PR-3) Ab <0.2 units (0.0-0.9)
[2023-11-20] MEDS: PANTOPRAZOLE 40 MG/10 ML VIAL INJ IV SCH (20:53)
[2023-11-20 22:06] LABS: Hematocrit 26.3 % (36.0-46.0); Hemoglobin 8.4 g/dL (12.2-16.2)
[2023-11-20 22:15] LABS: Chloride 112 mmol/L (98-107); Potassium 3.1 mmol/L (3.5-5.1); Sodium 145 mmol/L (136-145)
[2023-11-20 22:16] LABS: Calcium 8.1 mg/dL (8.5-10.1); Carbon Dioxide 35 mmol/L (20-30)
[2023-11-20 22:21] LABS: BUN/Creatinine Ratio 12.5 (10.0-20.0); Blood Urea Nitrogen 6 mg/dL (9-23); Glucose 112 mg/dL (74-106)
[2023-11-20 22:30] LABS: Anion Gap -2 (5-15)
[2023-11-20] MEDS: POTASSIUM CHL 20MEQ/100ML 100 ML IV SCH (23:49)
[2023-11-21] VITALS (59 sets, daily range): BP systolic 110–150; BP diastolic 71–105; PULSE 96–123; RESP 11–37; TEMP 98–98.4; O2SAT 94–100
[2023-11-21 04:06] LABS: Basophils # (auto) 0 10 ^3/uL (0-0.2); Eosinophils # (auto) 0.2 10 ^3/uL (0-0.8); Hemoglobin 8.4 g/dL (12.2-16.2); Mean Corpuscular Hgb Conc. 32.6 g/dL (32.0-36.0); Monocytes # (auto) 0.9 10 ^3/uL (0-1.3); Nucleated Red Blood Cells % 0.1 %; Red Blood Cells 3.17 10^6/uL (4.0-5.20)
[2023-11-21 04:09] LABS: Basophils % (auto) 0.3 % (0.0-2.0); Eosinophils % (auto) 1.6 % (0.0-7.0); Hematocrit 25.6 % (36.0-46.0); Lymphocytes # (auto) 1.7 10 ^3/uL (0.4-5.4); Lymphocytes % (auto) 11.2 % (10.0-50.0); Mean Corpuscular Hemoglobin 26.4 pg (28.0-32.0); Monocytes % (auto) 5.9 % (0.0-12.0); White Blood Cell 14.8 10^3/uL (4.4-10.8)
[2023-11-21 04:23] LABS: Red Cell Distribution Width 23.4 % (11.8-14.3)
[2023-11-21 04:25] LABS: Alanine Aminotransferase 11 U/L (7-40); Alkaline Phosphatase 130 U/L (46-116); Anion Gap 4 (5-15); BUN/Creatinine Ratio 11.1 (10.0-20.0); Blood Urea Nitrogen 5 mg/dL (9-23); Calcium 8.2 mg/dL (8.5-10.1); Carbon Dioxide 31 mmol/L (20-30); Chloride 113 mmol/L (98-107); Glucose 95 mg/dL (74-106); Magnesium 1.9 mg/dL (1.6-2.6); Potassium 3.8 mmol/L (3.5-5.1); Sodium 148 mmol/L (136-145)
[2023-11-21 04:26] LABS: Albumin 2.2 g/dL (3.2-4.8); Aspartate Aminotransferase 21 U/L (13-40); Bilirubin, Total 0.2 mg/dL (0.2-1.0); Total Protein 6.1 g/dL (5.7-8.2)
[2023-11-21 07:25] LABS: Base Excess 0.1 mmol/L (-2.0-2.0)
[2023-11-21] MEDS: D5W 5% 1,000 ML IV SCH (07:30)
[2023-11-21 08:39] LABS: Hepatitis B Surface Antigen Negative (Negative)
[2023-11-21 09:00] LABS: Hepatitis B Core IgM Negative
[2023-11-21 09:01] LABS: Hepatitis A Ab IgM Negative; Hepatitis C Antibody Negative (Negative)
[2023-11-21 14:48] LABS: Chloride 112 mmol/L (98-107); Potassium 3.2 mmol/L (3.5-5.1); Sodium 147 mmol/L (136-145)
[2023-11-21 14:49] LABS: Anion Gap 3 (5-15); Carbon Dioxide 32 mmol/L (20-30)
[2023-11-21 14:50] LABS: Calcium 8.3 mg/dL (8.5-10.1)
[2023-11-21 14:54] LABS: Glucose 105 mg/dL (74-106)
[2023-11-21 14:56] LABS: BUN/Creatinine Ratio 10.9 (10.0-20.0); Blood Urea Nitrogen < 5 mg/dL (9-23)
[2023-11-21] MEDS: POTASSIUM CHL 20MEQ/100ML 100 ML IV SCH (15:49)
[2023-11-21] MEDS: HYDROcodone-ACET 5/325MG TAB PO PRN (21:46)
[2023-11-22] VITALS (9 sets, daily range): BP systolic 106–132; BP diastolic 65–81; PULSE 79–116; RESP 14–19; TEMP 97.1–98.2; O2SAT 93–100
[2023-11-22 06:28] LABS: Basophils # (auto) 0 10 ^3/uL (0-0.2); Basophils % (auto) 0.3 % (0.0-2.0); Eosinophils # (auto) 0.2 10 ^3/uL (0-0.8); Hematocrit 27.9 % (36.0-46.0); Lymphocytes # (auto) 1.4 10 ^3/uL (0.4-5.4); Lymphocytes % (auto) 11.5 % (10.0-50.0); Mean Corpuscular Hemoglobin 26.6 pg (28.0-32.0); Mean Corpuscular Hgb Conc. 32.4 g/dL (32.0-36.0); Monocytes # (auto) 0.6 10 ^3/uL (0-1.3); Neutrophils # (auto) 9.9 10 ^3/uL (1.6-8.6); Neutrophils % (auto) 81.2 % (37.0-80.0); Nucleated Red Blood Cells % 0.2 %; White Blood Cell 12.2 10^3/uL (4.4-10.8)
[2023-11-22 06:31] LABS: Red Cell Distribution Width 23.6 % (11.8-14.3)
[2023-11-22 06:36] LABS: Anion Gap 5 (5-15); Calcium 8.3 mg/dL (8.5-10.1); Carbon Dioxide 30 mmol/L (20-30); Chloride 108 mmol/L (98-107); Potassium 3.3 mmol/L (3.5-5.1); Sodium 143 mmol/L (136-145)
[2023-11-22 06:42] LABS: Glucose 144 mg/dL (74-106)
[2023-11-22 06:43] LABS: BUN/Creatinine Ratio 9.1 (10.0-20.0); Blood Urea Nitrogen < 5 mg/dL (9-23); Magnesium 1.6 mg/dL (1.6-2.6)
[2023-11-22 06:44] LABS: Phosphorus 1.7 mg/dL (2.4-5.1)
[2023-11-22] MEDS: POTASSIUM PHOSPHATE 26.4 MEQ in SODIUM CHL 0.9% 100 ML IV ONE (11:41)
[2023-11-22] MEDS: FLUCONAZOLE 100 MG TAB PO SCH (11:42)
[2023-11-22] MEDS: SUCRALFATE 1 GM TAB PO SCH (11:42)
[2023-11-22] MEDS: MAGNESIUM OXIDE 400 MG TAB PO SCH (11:43)
[2023-11-22] MEDS: traMADol HCL 50 MG TAB PO PRN (11:51)
[2023-11-22] MEDS: ACYCLOVIR 400 MG TAB PO SCH (12:21)
[2023-11-22 13:07] LABS: Cytoplasmic (C-ANCA) <1:20 titer (Neg:<1:20); Perinuclear (P-ANCA) <1:20 titer (Neg:<1:20)
[2023-11-23] VITALS (8 sets, daily range): BP systolic 112–133; BP diastolic 68–90; PULSE 75–110; RESP 14–19; TEMP 97.8–98.4; O2SAT 92–96
[2023-11-23 05:44] LABS: Basophils # (auto) 0 10 ^3/uL (0-0.2); Basophils % (auto) 0.3 % (0.0-2.0); Eosinophils # (auto) 0.2 10 ^3/uL (0-0.8); Mean Corpuscular Volume 81.1 fL (80.0-100.0); Monocytes # (auto) 0.7 10 ^3/uL (0-1.3)
[2023-11-23 05:48] LABS: Eosinophils % (auto) 1.7 % (0.0-7.0); Hematocrit 25.9 % (36.0-46.0); Hemoglobin 8.5 g/dL (12.2-16.2); Lymphocytes # (auto) 1.4 10 ^3/uL (0.4-5.4); Lymphocytes % (auto) 12.5 % (10.0-50.0); Mean Corpuscular Hemoglobin 26.5 pg (28.0-32.0); Mean Corpuscular Hgb Conc. 32.7 g/dL (32.0-36.0); Neutrophils # (auto) 9.2 10 ^3/uL (1.6-8.6); Neutrophils % (auto) 79.5 % (37.0-80.0); Nucleated Red Blood Cells % 0.1 %; Red Blood Cells 3.19 10^6/uL (4.0-5.20); Red Cell Distribution Width 23.5 % (11.8-14.3); White Blood Cell 11.6 10^3/uL (4.4-10.8)
[2023-11-23 06:17] LABS: Anion Gap 3 (5-15); Carbon Dioxide 32 mmol/L (20-30); Chloride 106 mmol/L (98-107); Potassium 3.1 mmol/L (3.5-5.1); Sodium 141 mmol/L (136-145)
[2023-11-23 06:23] LABS: Glucose 91 mg/dL (74-106); Magnesium 1.7 mg/dL (1.6-2.6)
[2023-11-23 06:24] LABS: BUN/Creatinine Ratio 9.1 (10.0-20.0); Blood Urea Nitrogen < 5 mg/dL (9-23)
[2023-11-23 06:25] LABS: Phosphorus 3.5 mg/dL (2.4-5.1)
[2023-11-23] MEDS: POTASSIUM CHL 20 Meq TABLET PO ONE (10:07)
[2023-11-23] MEDS: Juven Orange Powder PACKET 27.5gm PO SCH (18:00)
[2023-11-24 05:00] VITALS: BP 110/79; PULSE 112; RESP 19; TEMP 97.9; O2SAT 79
[2023-11-24 06:31] LABS: Basophils # (auto) 0.1 10 ^3/uL (0-0.2); Basophils % (auto) 0.6 % (0.0-2.0); Eosinophils # (auto) 0.3 10 ^3/uL (0-0.8); Lymphocytes # (auto) 1.8 10 ^3/uL (0.4-5.4); Neutrophils # (auto) 8.9 10 ^3/uL (1.6-8.6); White Blood Cell 11.8 10^3/uL (4.4-10.8)
[2023-11-24 06:34] LABS: Eosinophils % (auto) 2.5 % (0.0-7.0); Hematocrit 27.6 % (36.0-46.0); Lymphocytes % (auto) 15.3 % (10.0-50.0); Mean Corpuscular Hemoglobin 26.5 pg (28.0-32.0); Mean Corpuscular Hgb Conc. 32.7 g/dL (32.0-36.0); Mean Corpuscular Volume 81.1 fL (80.0-100.0); Monocytes # (auto) 0.8 10 ^3/uL (0-1.3); Monocytes % (auto) 6.5 % (0.0-12.0); Neutrophils % (auto) 75.1 % (37.0-80.0); Red Cell Distribution Width 24.9 % (11.8-14.3)
[2023-11-24 06:47] LABS: Anion Gap 4 (5-15); Calcium 8.3 mg/dL (8.5-10.1); Carbon Dioxide 29 mmol/L (20-30); Chloride 106 mmol/L (98-107); Potassium 3.7 mmol/L (3.5-5.1); Sodium 139 mmol/L (136-145)
[2023-11-24 06:53] LABS: Blood Urea Nitrogen 6 mg/dL (9-23); Glucose 83 mg/dL (74-106)
[2023-11-24 06:55] LABS: Phosphorus 3.5 mg/dL (2.4-5.1)
[2023-11-24 08:30] VITALS: PULSE 104; PULSE 106; RESP 12
[2023-11-24 08:31] VITALS: BP 120/79; PULSE 106; RESP 12; TEMP 98.4; O2SAT 98
[2023-11-24 12:37] VITALS: BP 121/86; PULSE 80; RESP 16; TEMP 98.3; O2SAT 98
[2023-11-24 12:46] LABS: Amphetamine Screen, Urine Neg (NEGATIVE); Barbiturate Scree,Urine Neg (NEGATIVE); Benzodiazephine Screen, Urine Neg (NEGATIVE); Cannabinoid Screen, Urine Neg (NEGATIVE); Cocaine Screen, Urine Neg (NEGATIVE); Opiate Scree,Urine Neg (NEGATIVE); Phencyclidine Screen, Urine Neg (NEGATIVE)
== END 2023-11-24 17:09 | disposition left against medical advice (07) | DRG 720 ==
LOC: EDBD 10:01 → ER 10:01 → OVERFLOW 15:47 → ICU WEST 11-15 03:48 → TELE-EAST 11-21 23:33
PROVIDERS: ADMIT Internal Medicine; ATTEND Internal Medicine
PROC: 30233N1 Transfusion of Nonautologous Red Blood Cells into Peripheral Vein, Percutaneous Approach (ICD-10-PCS; principal; 2023-11-13)
PROC: 5A1955Z Respiratory Ventilation, Greater than 96 Consecutive Hours (ICD-10-PCS; 2023-11-13)
PROC: 0BH17EZ Insertion of Endotracheal Airway into Trachea, Via Natural or Artificial Opening (ICD-10-PCS; 2023-11-13)
PROC: 0DB58ZX Excision of Esophagus, Via Natural or Artificial Opening Endoscopic, Diagnostic (ICD-10-PCS; 2023-11-15)
PROC: 0DB68ZX Excision of Stomach, Via Natural or Artificial Opening Endoscopic, Diagnostic (ICD-10-PCS; 2023-11-15)
PROC: 0DBA8ZX Excision of Jejunum, Via Natural or Artificial Opening Endoscopic, Diagnostic (ICD-10-PCS; 2023-11-15)
PROC: 05H933Z Insertion of Infusion Device into Right Brachial Vein, Percutaneous Approach (ICD-10-PCS; 2023-11-19)
PROC: B54MZZA Ultrasonography of Right Upper Extremity Veins, Guidance (ICD-10-PCS; 2023-11-19)
DX: A41.01 Sepsis due to Methicillin susceptible Staphylococcus aureus (principal); N17.0 Acute kidney failure with tubular necrosis; G92.8 Other toxic encephalopathy; K22.11 Ulcer of esophagus with bleeding; J15.211 Pneumonia due to Methicillin susceptible Staphylococcus aureus; J96.01 Acute respiratory failure with hypoxia; J96.02 Acute respiratory failure with hypercapnia; R65.21 Severe sepsis with septic shock; R57.1 Hypovolemic shock; K28.4 Chronic or unspecified gastrojejunal ulcer with hemorrhage; D64.9 Anemia, unspecified; F15.10 Other stimulant abuse, uncomplicated; K44.9 Diaphragmatic hernia without obstruction or gangrene; Z20.822 Contact with and (suspected) exposure to COVID-19; F17.210 Nicotine dependence, cigarettes, uncomplicated; Z53.29 Procedure and treatment not carried out because of patient's decision for other reasons; E87.0 Hyperosmolality and hypernatremia; E11.21 Type 2 diabetes mellitus with diabetic nephropathy; N12 Tubulo-interstitial nephritis, not specified as acute or chronic; A53.9 Syphilis, unspecified; E87.6 Hypokalemia; E83.39 Other disorders of phosphorus metabolism; E83.42 Hypomagnesemia; B96.1 Klebsiella pneumoniae [K. pneumoniae] as the cause of diseases classified elsewhere; K29.71 Gastritis, unspecified, with bleeding; Z90.49 Acquired absence of other specified parts of digestive tract; Z83.3 Family history of diabetes mellitus; Z98.51 Tubal ligation status; Z88.0 Allergy status to penicillin; Z98.84 Bariatric surgery status; Z82.49 Family history of ischemic heart disease and other diseases of the circulatory system; Z82.5 Family history of asthma and other chronic lower respiratory diseases; L89.159 Pressure ulcer of sacral region, unspecified stage
CPT/HCPCS: 36415; 36600; 43239; 70450; 71045; 71250; 72040; 72125; 74176; 80048; 80053; 80061; 80074; 80202; 80307; 81001; 82140; 82247; 82270; 82306; 82533; 82570; 82607; 82728; 82805; 82962; 83010; 83036; 83516; 83520; 83540; 83550; 83605; 83615; 83690; 83735; 83880; 83930; 83935; 84075; 84100; 84112; 84132; 84300; 84443; 84450; 84460; 84484; 84630; 84702; 85007; 85014; 85018; 85025; 85027; 85379; 85384; 85610; 85730; 86038; 86225; 86235; 86256; 86592; 86703; 86787; 86850; 86880; 86885; 86900; 86901; 86920; 87040; 87070; 87077; 87081; 87086; 87088; 87186; 87205; 87426; 87804; 92610; 93005; 93306; 93971; 94002; 94003; 94640; 96365; 96375; 97163; 99291; C9113; G0378; J1450; J1756; J2185; J3480; J3490; J7060

== ENCOUNTER 2024-03-31 17:38 | Emergency (ER) | payer MEDICAID ==
[~2024-03-31] VITALS: Ht 167.6 cm; Wt 70.1 kg
[2024-03-31 18:33] VITALS: BP 133/79; PULSE 73; RESP 16; TEMP 98.2; O2SAT 99
[2024-03-31] MEDS: KETOROLAC TROMETH 30 MG/ML 1ML VIAL IM ONE (18:38)
[2024-03-31] MEDS ORDERED: CYCL-837 PO (19:47)
== END 2024-03-31 20:13 | disposition home or self-care (01) ==
LOC: ER 17:38
DX: S63.501A Unspecified sprain of right wrist, initial encounter (principal); S93.402A Sprain of unspecified ligament of left ankle, initial encounter; S30.0XXA Contusion of lower back and pelvis, initial encounter; F17.210 Nicotine dependence, cigarettes, uncomplicated; F15.10 Other stimulant abuse, uncomplicated; Z88.0 Allergy status to penicillin; Z90.49 Acquired absence of other specified parts of digestive tract; Z98.51 Tubal ligation status; W01.0XXA Fall on same level from slipping, tripping and stumbling without subsequent striking against object, initial encounter; Y93.89 Activity, other specified; Y92.89 Other specified places as the place of occurrence of the external cause; Y99.8 Other external cause status
CPT/HCPCS: 72100; 73110; 73610; 96372; 99284; J1885